=== PATIENT | male | born 1975 | race Caucasian/White ===

== ENCOUNTER 2018-05-05 10:29 | Emergency (ER) | payer OTHER ==
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
[2018-05-05] MEDS ORDERED: diphenhydrAMINE INJ 50 MG/ML VIAL IVP STA (10:45)
[2018-05-05] MEDS ORDERED: CETIRIZINE 10 MG TABLET PO STA (10:45)
[2018-05-05] MEDS ORDERED: SODIUM CHLORIDE 0.9% 1,000 ML IV ONE (10:45)
[2018-05-05] MEDS ORDERED: EPINEPHrine 1 MG/ML AMP IM STA ×2 (10:45→11:46)
[2018-05-05] MEDS ORDERED: DEXAMETHASONE 10 MG/ML VIAL IVP STA (10:45)
[2018-05-05 13:59] VITALS: BP 115/61
== END 2018-05-05 13:57 | disposition home or self-care (01) ==
LOC: ED 10:29
DX: T63.443A Toxic effect of venom of bees, assault, initial encounter (principal); L29.9 Pruritus, unspecified; L50.9 Urticaria, unspecified
CPT/HCPCS: 96361; 96372; 96374; 96375; 99284; A9270; J1200